=== PATIENT | male | born 1940 | race Hispanic/Latino ===

== ENCOUNTER 2017-09-05 14:43 | Outpatient (CLI) | payer MEDICARE ==
--- NOTE | 2017-09-05 19:17 | XRay Report ---
FINAL REPORT EXAM: XR HAND BILAT 3+V HISTORY: STIFFNESS OF JOINTS OF BOTH HANDS TECHNIQUE: Three views of each hand were performed Comparison: None FINDINGS: Global osteopenia. Mild diffuse joint space narrowing of the DIP and PIP is with preserved MCPs. Mild osteophytic change of the right 2nd and 3rd DIP and to a lesser degree the left 2nd and 3rd DIP. There are no erosions. Carpal arcs are grossly unremarkable. There is no periarticular demineralization or focal soft tissue swelling. 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 No plain film evidence of an inflammatory pattern.
== END 2017-09-05 14:44 | disposition home or self-care (01) ==
LOC: XRAY 14:43
PROVIDERS: ATTEND Internal Medicine
DX: M25.641 Stiffness of right hand, not elsewhere classified (principal); M25.642 Stiffness of left hand, not elsewhere classified